=== PATIENT | male | born 1960 | race Caucasian/White ===

== ENCOUNTER 2017-04-18 09:11 | Emergency (ER) | payer BC ==
[~2017-04-18] VITALS: Ht 180.3 cm; Wt 82.0 kg
[~2017-04-18 09:11] MED LIST: RIVA15 PO; RIVA20 PO; ZITH250T PO
[2017-04-18 09:17] VITALS: BP 135/85; PULSE 73; RESP 16; TEMP 97.9; O2SAT 97
--- NOTE | 2017-04-18 09:31 | PD ---
HPI Chief Complaint: Musculoskeletal Complaint Time Seen by Provider: 09:20 Travel History International Travel<30 days: No Contact w/Intl Traveler<30days: No Traveled to known affect area: No History of Present Illness HPI 56 y/o male presents with right leg pain over the past couple of days that feels similar to a prior DVT which he had in his left leg a couple years ago. He states that DVT he had after he was sick and Laying around for a while and had a long car trip. He states he denies any recent immobile period. He denies any trauma, fever or other concurrent complaints. Location is crampy. duration is couple of days PFSH Past Medical History Narrative Medical dvt Diminished Hearing: No Past Surgical History Surgical History: No Previous Surgery Social History Alcohol Use: Yes Tobacco Use: No Substance Use: No Allergies-Medications (Allergen,Severity, Reaction): Coded Allergies: No Known Allergies (Unverified , 04/18/17) Reported Meds & Prescriptions Reported Meds & Active Scripts Active No Active Prescriptions or Reported Medications Review of Systems Except as stated in HPI: all other systems reviewed are Neg Physical Exam Narrative GENERAL: Well-nourished, well-developed patient. well appearing SKIN: Warm and dry. HEAD: Normocephalic and atraumatic. EYES: No injection or drainage. ENT: No nasal drainage noted. NECK: Supple, trachea midline. CARDIOVASCULAR: Regular rate and rhythm RESPIRATORY: no increased effort. No accessory muscle use. EXTREMITIES: No edema. Pain with palpation of right calf without overlying skin changes, no pain with other joints , neurovascularly intact, no lacerations over , compartments soft. NEUROLOGICAL: Awake and alert. Motor and sensory grossly within normal limits. Normal speech. Data Data Last Documented VS Vital Signs Date Time Temp Pulse Resp B/P Pulse Ox O2 Delivery O2 Flow Rate FiO2 04/18/17 09:30 16 04/18/17 09:17 97.9 73 135/85 97 Orders Us Leg Venous Doppler (04/18/17 ) [facility] Medical Decision Making Medical Screen Exam Complete: Yes Emergency Medical Condition: Yes Medical Record Reviewed: Yes (pmh confirmed) Interpretation(s) Last 24 hours Impressions Lower Extremity Ultrasound 04/18/17 0000 Signed Impressions: Service Date/Time: Tuesday, April 18, 2017 10:38 - CONCLUSION: Thrombosis greater saphenous vein. Fletcher Beck MD FACR Differential Diagnosis DVT, Barker cyst, strain Narrative Course Will check ultrasound and reevaluate Patient given copy of ultrasound, lengthy discussion with patient, he agrees to hold on anticoagulation given overall low risk for propagation of clot and repeat ultrasound through his primary within one week, Patient denies any new complaints, all questions answered. Patient knows that follow up is incumbent on them and to return to the emergency room immediately if new or worsening symptoms develop. Patient given strict return precautions, vitals reviewed and are normal, agrees to further workup as an outpatient. Diagnosis Primary Impression: Superficial thrombophlebitis Qualified Code: I80.01 - Thrombophlebitis of superficial veins of right lower extremity Patient Instructions: General Instructions Additional Instructions: return as needed, elevate leg at rest, motrin as needed for pain, warm compresses to area of pain as needed, follow with primary this week with repeat ultrasound in 7 days-sooner with worsening symptoms Med/Other Pt SpecificInfo: Prescription(s) given Scripts No Active Prescriptions or Reported Meds Disposition: 01 DISCHARGE HOME Condition: Stable Carmen Hill MD Apr 18, 2017 09:31
--- NOTE | 2017-04-18 11:19 | RADRPT ---
EXAM DATE/TIME: 04/18/2017 10:38 [facility] COMPARISON: No previous studies available for comparison. INDICATIONS : Right leg pain. MEDICAL HISTORY : Deep venous thrombosis. SURGICAL HISTORY : Right knee surgery. ENCOUNTER: Initial ACUITY: 2 day PAIN SCORE: 3/10 LOCATION: Right leg. TECHNIQUE: Venous ultrasound of the leg was performed from the inguinal ligament to the proximal calf. Real-darshana e, color Doppler and spectral tracing, compression and augmentation techniques were used. FINDINGS: Occlusive thrombus is seen in the greater saphenous vein. There is no deep venous thrombosis. CONCLUSION: Thrombosis greater saphenous vein. Fletcher Beck MD FACR on April 18, 2017 at 11:16 Board Certified Radiologist. This report was verified electronically.
== END 2017-04-18 11:45 | disposition home or self-care (01) ==
LOC: PHED 09:11
DX: I80.01 Phlebitis and thrombophlebitis of superficial vessels of right lower extremity (principal); Z86.718 Personal history of other venous thrombosis and embolism
CPT/HCPCS: 93971; 99284